=== PATIENT | female | born 1940 | race Caucasian/White ===

== ENCOUNTER 2017-04-05 15:14 | Emergency (ER) | payer OTHER ==
--- NOTE | 2017-04-05 15:51 | CPEKG ---
Heart Rate: 116 RR Interval: 517 P-R Interval: 108 QRSD Interval: 92 QT Interval: 324 QTC Interval: 451 P Riverview: 0 QRS [place]: 56 T Wave [place]view: -18 EKG Severity - OTHERWISE NORMAL ECG - EKG Impression: SINUS TACHYCARDIA Electronically Signed By: Arjun Hammonds 05-Apr-2017 20:35:31
[2017-04-05] MEDS ORDERED: NS 500 ML IV ONE (15:59)
--- NOTE | 2017-04-05 16:01 | EDPHY ---
HPI/HX/ROS/PE/MDM Narrative: CHIEF COMPLAINT: "I'm just really shaky" HPI: The patient is a healthy 76 y/o female arriving with her complaining of chills and rigors onset yesterday. She has continued to have shakiness throughout the day today. Her notes her BP and HR were abnormally high at 157/90 and 111, but she did not have a fever. She was also too weak to get in and out of bed, which concerned her enough to bring her into the ED. She has an associated loss of appetite. She denies vomiting, diarrhea, dysuria, abdominal pain, chest pain, dyspnea, cough, recent trauma. No cardiac history. REVIEW OF SYSTEMS: Aside from elements discussed in the HPI, a comprehensive 10-point review of systems was reviewed and is negative. PMH: Hypothyroidism, arthritis SOCIAL HISTORY: at bedside, works in garden regularly PHYSICAL EXAM: General:Patient is alert, in no acute distress. HR 110. ENT:Eyes are normal to inspection. ENT inspection normal. Neck: Normal inspection. Full range of motion. Respiratory:No respiratory distress. Breath sounds normal bilaterally. Cardiovascular: Tachycardic regular rate and rhythm. Strong peripheral pulses. Normal cap refill. Abdomen:The abdomen is nontender to palpation. There are no peritoneal signs. Back: Normal to inspection. No tenderness to palpation. Skin: Normal color. No rash. Warm and dry. Extremities: Normal appearance. Full range of motion. Neuro: Oriented x3. Normal motor function. Normal sensory function. ED Course: IV established. Labs drawn. Flu swab and UA ordered. Patient placed on lightout examiner. 500mL IV NS administered. The 12 lead EKG was interpreted by myself. See hard copy and/or "tracemaster" electronic copy for interpretation. Chest x-ray negative for acute process. Reassessed patient and discussed work up. UA indicates UTI. 1gm IV Ceftriaxone administered. Patient will be discharged with a script for Keflex and standard UTI care and follow up instructions. She agrees with discharge plan. - Data Points Imaging Results: Imaging Impressions Chest X-Ray 04/05/17 15:59 Impression: 1. No pneumonia. 2. Chronic airways disease similar to 2016. Imaging: I viewed and interpreted images myself Laboratory Results: Laboratory Results 04/05/17 15:49 04/05/17 15:49 04/05/17 04/05/17 04/05/17 18:00 16:16 15:49 WBC RBC Hgb Hct MCV MCH MCHC RDW Plt Count MPV Neut % (Auto) Lymph % (Auto) Maverick % (Auto) Eos % (Auto) Baso % (Auto) Nucleat RBC Rel Count Absolute Neuts (auto) Absolute Lymphs (auto) Absolute Monos (auto) Absolute Eos (auto) Absolute Basos (auto) Absolute Nucleated RBC Immature Gran % Immature Gran # Sodium 135 mEq/L mEq/L (134-144) Potassium 3.4 mEq/L L mEq/L (3.5-5.2) Chloride 101 mEq/L mEq/L (97-110) Carbon Dioxide 25 mEq/l mEq/l (22-31) Anion Gap 9 mEq/L mEq/L (8-16) BUN 15 mg/dL mg/dL (7-23) Creatinine 1.0 mg/dL mg/dL (0.6-1.0) Estimated GFR 54 Glucose 154 mg/dL H mg/dL (70-100) Calcium 10.2 mg/dL mg/dL (8.5-10.4) Total Bilirubin 0.5 mg/dL mg/dL (0.1-1.4) Conjugated Bilirubin 0.3 mg/dL mg/dL (0.0-0.5) Unconjugated Bilirubin 0.2 mg/dL mg/dL (0.0-1.1) AST 34 IU/L IU/L (14-46) ALT 35 IU/L IU/L (9-52) Alkaline Phosphatase 136 IU/L H IU/L (38-126) Troponin I < 0.012 ng/mL ng/mL (0.000-0.034) Total Protein 7.8 g/dL g/dL (6.3-8.2) Albumin 3.8 g/dL g/dL (3.5-5.0) Urine Color YELLOW Urine Appearance MODERATELY TURBID Urine pH 5.0 (5.0-7.5) Ur Specific [place] 1.009 (1.002-1.030) Urine Protein 1+ H (NEGATIVE) Urine Ketones NEGATIVE (NEGATIVE) Urine Blood 2+ H (NEGATIVE) Urine Nitrate POSITIVE H (NEGATIVE) Urine Bilirubin NEGATIVE (NEGATIVE) Urine Urobilinogen NEGATIVE EU EU (0.2-1.0) Ur Leukocyte Esterase 3+ H (NEGATIVE) Urine RBC 15-25 /hpf H /hpf (0-3) Urine WBC 50-182 /hpf H /hpf (0-3) Ur Epithelial Cells TRACE /lpf /lpf (NONE-1+) Urine Bacteria 4+ /hpf H /hpf (NONE SEEN) Hyaline Casts 5-15 /lpf /lpf (0-1) Urine Mucus 1+ /lpf /lpf (NONE-1+) Urine Glucose NEGATIVE (NEGATIVE) Influenza A & B (PCR) NEGATIVE FOR FLU (NEGATIVE) 04/05/17 15:49 WBC 16.85 10^3/uL H 10^3/uL (3.80-9.50) RBC 4.24 10^6/uL 10^6/uL (4.18-5.33) Hgb 13.0 g/dL g/dL (12.6-16.3) Hct 38.6 % % (38.0-47.0) MCV 91.0 fL fL (81.5-99.8) MCH 30.7 pg pg (27.9-34.1) MCHC 33.7 g/dL g/dL (32.4-36.7) RDW 13.2 % % (11.5-15.2) Plt Count 211 10^3/uL 10^3/uL (150-400) MPV 10.7 fL fL (8.7-11.7) Neut % (Auto) 86.0 % H % (39.3-74.2) Lymph % (Auto) 7.7 % L % (15.0-45.0) Maverick % (Auto) 5.1 % % (4.5-13.0) Eos % (Auto) 0.1 % L % (0.6-7.6) Baso % (Auto) 0.4 % % (0.3-1.7) Nucleat RBC Rel Count 0.0 % % (0.0-0.2) Absolute Neuts (auto) 14.50 10^3/uL H 10^3/uL (1.70-6.50) Absolute Lymphs (auto) 1.30 10^3/uL 10^3/uL (1.00-3.00) Absolute Monos (auto) 0.86 10^3/uL H 10^3/uL (0.30-0.80) Absolute Eos (auto) 0.01 10^3/uL L 10^3/uL (0.03-0.40) Absolute Basos (auto) 0.06 10^3/uL 10^3/uL (0.02-0.10) Absolute Nucleated RBC 0.00 10^3/uL 10^3/uL (0-0.01) Immature Gran % 0.7 % % (0.0-1.1) Immature Gran # 0.12 10^3/uL H 10^3/uL (0.00-0.10) Sodium Potassium Chloride Carbon Dioxide Anion Gap BUN Creatinine Estimated GFR Glucose Calcium Total Bilirubin Conjugated Bilirubin Unconjugated Bilirubin AST ALT Alkaline Phosphatase Troponin I Total Protein Albumin Urine Color Urine Appearance Urine pH Ur Specific Cromwell Urine Protein Urine Ketones Urine Blood Urine Nitrate Urine Bilirubin Urine Urobilinogen Ur Leukocyte Esterase Urine RBC Urine WBC Ur Epithelial Cells Urine Bacteria Hyaline Casts Urine Mucus Urine Glucose Influenza A & B (PCR) Medications Given: Discontinued Medications Sodium Chloride (Ns) 500 mls @ 0 mls/hr IV EDNOW ONE; Wide Open PRN Reason: Protocol Stop: 04/05/17 16:00 Last Admin: 04/05/17 16:14 Dose: 500 mls General Time Seen by Provider: 04/05/17 15:46 Initial Vital Signs: Initial Vital Signs Temperature (C) 37 C 04/05/17 15:14 Heart Rate 115 H 04/05/17 15:14 Respiratory Rate 16 04/05/17 15:14 Blood Pressure 150/90 H 04/05/17 15:14 O2 Sat (%) 93 04/05/17 15:14 O2 Delivery Mode Room Air Allergies/Adverse Reactions: shrimp Allergy (Verified 04/05/17 15:46) IV contrast Isovue Allergy (Intermediate, Uncoded 09/14/15 13:09) Hives Home Medications: Medication Instructions Recorded Cephalexin [Keflex] 500 mg PO TID #21 cap 04/05/17 Departure - Departure Disposition: Home, Routine, Self-Care Clinical Impression: UTI (urinary tract infection) Qualifiers: Urinary tract infection type: site unspecified Hematuria presence: without hematuria Qualified Code(s): N39.0 - Urinary tract infection, site not specified Condition: Good Instructions: Cephalexin (By mouth), Urinary Tract Infection in Women (ED) Additional Instructions: Take Keflex as prescribed. Be sure to complete the entire prescription even if you feel better. Return to the Emergency Department for fever, worsening pain, flank pain or failure to improve within 72 hours. It is possible that the bacteria causing your infection is resistant to the antibiotic we've placed you on. We have sent a urine for culture, if this comes back with a resistant bacteria, we will call you at the number you provided to us. Follow-up with your primary doctor within 72 hours for unimproved symptoms. Referrals: Patient,NotPresent [Primary Care Provider] - As per Instructions Dennis Simon MD [[facility] Primary Care Provider] - As per Instructions Prescriptions: Cephalexin [Keflex] 500 mg PO TID #21 cap Report Scribed for: Yasmani Albrecht Report Scribed by: Arely Portillo Date of Report: 04/05/17 Time of Report: 16:01 Physician Review and Approval Statement: Portions of this note were transcribed by an ED scribe. I personally performed the history, physical exam, and medical decision making; and confirm the accuracy of the information in the transcribed note.
[2017-04-05 16:05] LABS: % IMMATURE GRANULYOCYTES 0.7 % (0.0-1.1); ABSOLUTE IMMATURE GRANULOCYTES 0.12 10^3/uL (0.00-0.10); ADD DIFF? NO; ADD MORPH? NO; ADD SCAN? NO; ATYPICAL LYMPHOCYTE FLAG 0 (0-99); FRAGMENT RBC FLAG 0 (0-99); HEMATOCRIT 38.6 % (38.0-47.0); LEFT SHIFT FLG 0 (0-99); LIPEMIA HEMOLYSIS FLAG 80 (0-99); MEAN CELL HEMOGLOBIN 30.7 pg (27.9-34.1); MEAN CELL HEMOGLOBIN CONCENTR. 33.7 g/dL (32.4-36.7); MEAN PLATELET VOLUME 10.7 fL (8.7-11.7); PLATELET CLUMPS FLAG 10 (0-99); PLATELET COUNT 211 10^3/uL (150-400); RED BLOOD CELL COUNT 4.24 10^6/uL (4.18-5.33); RED CELL DISTRIBUTION WIDTH 13.2 % (11.5-15.2)
[2017-04-05 17:32] LABS: ALANINE AMINOTRANSFERASE 35 IU/L (9-52); ALBUMIN 3.8 g/dL (3.5-5.0); ALKALINE PHOSPHATASE 136 IU/L (38-126); ANION GAP 9 mEq/L (8-16); ASPARTATE AMINOTRANSFERASE 34 IU/L (14-46); BILIRUBIN,TOTAL 0.5 mg/dL (0.1-1.4); BILIRUBIN-CONJUGATED 0.3 mg/dL (0.0-0.5); BILIRUBIN-UNCONJUGATED 0.2 mg/dL (0.0-1.1); CALCIUM 10.2 mg/dL (8.5-10.4); CARBON DIOXIDE 25 mEq/l (22-31); CHLORIDE 101 mEq/L (97-110); GLOMERULAR FILTRATION RATE 54; GLUCOSE 154 mg/dL (70-100); POTASSIUM 3.4 mEq/L (3.5-5.2); SODIUM 135 mEq/L (134-144); TOTAL PROTEIN 7.8 g/dL (6.3-8.2)
[2017-04-05 17:43] LABS: TROPONIN I < 0.012 ng/mL (0.000-0.034)
[2017-04-05 17:52] VITALS: TEMP 98.4
[2017-04-05 18:19] LABS: COLOR YELLOW; LEUKOCYTE ESTERASE,URINE 3+ (NEGATIVE); NITRITE,URINE POSITIVE (NEGATIVE)
[2017-04-05 18:27] LABS: BACTERIA 4+ /hpf (NONE SEEN); MUCUS 1+ /lpf (NONE-1+); RBC,URINE 15-25 /hpf (0-3); WBC,URINE 50-182 /hpf (0-3)
[2017-04-05 19:48] VITALS: BP 135/67; PULSE 83; RESP 16; O2SAT 94
== END 2017-04-05 19:48 | disposition home or self-care (01) ==
DX: N39.0 Urinary tract infection, site not specified (principal); B96.20 Unspecified Escherichia coli [E. coli] as the cause of diseases classified elsewhere; E86.9 Volume depletion, unspecified
CPT/HCPCS: 71020; 93005; 96361; 96365; 99285; J0696

== ENCOUNTER 2017-04-25 14:40 | Emergency (ER) | payer OTHER ==
[2017-04-25] MEDS ORDERED: ACETAMINOPHEN 325 MG TAB PO ONE (15:04)
[2017-04-25] MEDS ORDERED: NS 1,000 ML IV ONE (15:04)
--- NOTE | 2017-04-25 15:18 | EDPHY ---
H & P Stated Complaint: tx 2 wks ago for urosepsis/shakyness/fever has reurned Time Seen by Provider: 04/25/17 14:58 HPI/ROS: CHIEF COMPLAINT: Chills, malaise HISTORY OF PRESENT ILLNESS: This patient is a 76 y/o female arriving with her complaining of returning fever and malaise after being treated for a UTI two weeks ago. She completed a one week course of Keflex, and was feeling better. Today, she developed similar symptoms again including chills and achiness. She denies any current urinary symptoms including dysuria, frequency, or urgency. She did not have urinary symptoms on her prior presentation of UTI. She endorses weakness. She denies any cough, vomiting, diarrhea, abdominal pain, dizziness, shortness of breath, or other associated symptoms. She has not received her flu shot yet this year. REVIEW OF SYSTEMS: A 10 point review of systems was performed and is negative with the exception of the elements mentioned in the history of present illness. - Personal History Current Tetanus/Diphtheria Vaccine: No - Medical/Surgical History PMH: 1. Hypothyroidism 2. Arthritis Reviewed past medical records including emergency department visit from 04/05/17 for similar symptoms. Hx Asthma: No Hx Chronic Respiratory Disease: No Hx Diabetes: No Hx Cardiac Disease: No Hx Renal Disease: No Hx Cirrhosis: No Hx Alcoholism: No Hx HIV/AIDS: No Hx Splenectomy or Spleen Trauma: No Other PMH: tka bilat - Social History Smoking Status: Never smoked Additional Social History: at bedside, attends local music festivals, lives in [place] - Physical Exam Exam: General Appearance: Alert, nontoxic-appearing Eyes: Pupils equal and round, no conjunctival pallor or injection ENT, Mouth: Mucous membranes moist, no pharyngeal erythema Neck: Normal inspection, no adenopathy Respiratory: Lungs are clear to auscultation Cardiovascular: Regular tachycardia Gastrointestinal: Abdomen is soft and non-tender Back: No CVA tenderness Neurological: A&O, nonfocal, normal gait Skin: Warm and dry, no rash Extremities: Nontender, no pedal edema Psychiatric: Mood and affect normal Constitutional: Initial Vital Signs Temperature (C) 37.8 C 04/25/17 14:47 Heart Rate 128 H 04/25/17 14:47 Respiratory Rate 20 04/25/17 14:47 Blood Pressure 153/83 H 04/25/17 14:47 O2 Sat (%) 94 04/25/17 14:47 O2 Delivery Mode Room Air O2 (L/minute) 2 Allergies/Adverse Reactions: shrimp Allergy (Verified 04/25/17 14:45) Tetracyclines Allergy (Verified 04/25/17 14:46) IV contrast Isovue Allergy (Intermediate, Uncoded 09/14/15 13:09) Hives Home Medications: Medication Instructions Recorded Cefdinir [Omnicef (*)] 300 mg PO BID #20 cap 04/25/17 Synthroid 04/25/17 Medical Decision Making - Diagnostics Imaging Results: Chest X-Ray 04/25/17 15:04 Impression: Central bronchitis, stable. No pneumonia identified... Imaging: I viewed and interpreted images myself ED Course/Re-evaluation: 76 y/o female presents with chills and weakness similar to her presentation two weeks ago when she was diagnosed with UTI in this emergency department. Plan for labs including UA, CBC, BMP, lactic, blood cultures, and flu swab. Plan for chest x-ray. Administered 650mg PO Tylenol for fever reduction and 1L IV NS. Patient's current temperature 37.8. This patient meets SIRS criteria Lactate within normal limits. Chemistries within normal limits. I reviewed the prior urine culture, which revealed E coli , pansensitive. However the SHANNON to 1st and 2nd generation cephalosporins is less than 8; adequate SHANNON to 3rd/4th generation cephalosporins. I will give her a dose of Invanz [address] her on Omnicef. Plan to d/c home in good condition. Followup and return precautions discussed. The patient is comfortable with this plan. Differential Diagnosis: Differential diagnosis includes pyelonephritis, cholecystitis, influenza, cellulitis, pneumonia, abscess, meningitis. 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 Medications Given: Discontinued Medications Acetaminophen (Tylenol) 650 mg PO EDNOW ONE Stop: 04/25/17 15:05 Last Admin: 04/25/17 15:39 Dose: 650 mg Sodium Chloride (Ns) 1,000 mls @ 0 mls/hr IV ONCE ONE; Wide Open PRN Reason: Protocol Stop: 04/25/17 15:05 Last Admin: 04/25/17 15:39 Dose: 1,000 mls Ertapenem 1 gm/ Sodium (Chloride) 100 mls @ 200 mls/hr IV EDNOW ONE PRN Reason: Protocol Stop: 04/25/17 16:49 Last Admin: 04/25/17 16:49 Dose: 100 mls Departure - Departure Disposition: Home, Routine, Self-Care Clinical Impression: Acute pyelonephritis Condition: Good Instructions: Urinary Tract Infection in Women (ED) Additional Instructions: Take Omnicef as prescribed. Be sure to complete the entire prescription even if you feel better. Return to the Emergency Department for fever, worsening pain, flank pain or failure to improve within 72 hours. Follow-up with your primary doctor on Saturday. Referrals: Padmini Michael MD [Primary Care Provider] - As per Instructions Prescriptions: Cefdinir [Omnicef (*)] 300 mg PO BID #20 cap Report Scribed for: Ana Zamudio Report Scribed by: Ann Harper Date of Report: 04/25/17 Time of Report: 15:18 Physician Review and Approval Statement: 04/25/17 15:18 Portions of this note were transcribed by a remote medical coder. I personally performed a history, physical exam, medical decision making, and confirmed accuracy of information the transcribed note.
[2017-04-25 15:39] LABS: % IMMATURE GRANULYOCYTES 0.9 % (0.0-1.1); ABSOLUTE IMMATURE GRANULOCYTES 0.16 10^3/uL (0.00-0.10); ADD DIFF? NO; ADD MORPH? NO; ADD SCAN? NO; ATYPICAL LYMPHOCYTE FLAG 0 (0-99); FRAGMENT RBC FLAG 0 (0-99); HEMOGLOBIN 12.6 g/dL (12.6-16.3); LEFT SHIFT FLG 0 (0-99); LIPEMIA HEMOLYSIS FLAG 80 (0-99); MEAN CELL HEMOGLOBIN 30.7 pg (27.9-34.1); MEAN CELL HEMOGLOBIN CONCENTR. 33.2 g/dL (32.4-36.7); MEAN CELL VOLUME 92.7 fL (81.5-99.8); MEAN PLATELET VOLUME 11.1 fL (8.7-11.7); PLATELET CLUMPS FLAG 10 (0-99); PLATELET COUNT 242 10^3/uL (150-400); RED CELL DISTRIBUTION WIDTH 13.9 % (11.5-15.2)
[2017-04-25 15:51] LABS: ANION GAP 14 mEq/L (8-16); CALCIUM 9.7 mg/dL (8.5-10.4); CARBON DIOXIDE 23 mEq/l (22-31); CHLORIDE 101 mEq/L (97-110); CREATININE 0.8 mg/dL (0.6-1.0); GLOMERULAR FILTRATION RATE > 60; GLUCOSE 166 mg/dL (70-100); POTASSIUM 3.5 mEq/L (3.5-5.2); SODIUM 138 mEq/L (134-144)
[2017-04-25 15:56] LABS: COLOR AMBER; LEUKOCYTE ESTERASE,URINE 3+ (NEGATIVE); NITRITE,URINE POSITIVE (NEGATIVE)
[2017-04-25] MEDS ORDERED: ERTAPENEM 1 GM in NS 100 ML IV ONE (16:20)
[2017-04-25 16:23] LABS: BACTERIA 4+ /hpf (NONE SEEN); MUCUS TRACE /lpf (NONE-1+); RBC,URINE 15-25 /hpf (0-3); WBC,URINE 50-182 /hpf (0-3)
[2017-04-25 16:35] VITALS: TEMP 99.3; O2SAT 96
[2017-04-25 17:30] VITALS: BP 130/74; PULSE 93; RESP 97
== END 2017-04-25 17:29 | disposition home or self-care (01) ==
PROC: 3E0337Z Introduction of Electrolytic and Water Balance Substance into Peripheral Vein, Percutaneous Approach (ICD-10-PCS; principal; 2017-04-25)
DX: N10 Acute pyelonephritis (principal); B96.20 Unspecified Escherichia coli [E. coli] as the cause of diseases classified elsewhere; E86.9 Volume depletion, unspecified
CPT/HCPCS: 71020; 96361; 96374; 99284; J1335